=== PATIENT | male | born 1935 | race Caucasian/White ===

== ENCOUNTER 2020-12-20 15:30 | Inpatient (IN) | payer MEDICARE, BC ==
[~2020-12-20] VITALS: Ht 165.1 cm; Wt 45.1 kg
[2020-12-20 16:35] LABS: Basophils # (auto) 0 10 ^3/uL (0-0.2); Basophils % (auto) 0.4 % (0.0-2.0); Eosinophils # (auto) 0 10 ^3/uL (0-0.8); Hematocrit 43.3 % (41.0-53.0); Hemoglobin 14.1 g/dL (13.5-17.5); Lymphocytes # (auto) 0.6 10 ^3/uL (0.4-5.4); Lymphocytes % (auto) 7.6 % (10.0-50.0); Mean Corpuscular Hemoglobin 29.9 pg (28.0-32.0); Mean Corpuscular Hgb Conc. 32.6 g/dL (32.0-36.0); Mean Corpuscular Volume 91.7 fL (80.0-100.0); Monocytes # (auto) 0.7 10 ^3/uL (0-1.3); Monocytes % (auto) 8.8 % (0.0-12.0); Neutrophils # (auto) 6.5 10 ^3/uL (1.6-8.6); Neutrophils % (auto) 83.2 % (37.0-80.0); Nucleated Red Blood Cells % 0.2 %; Red Blood Cells 4.72 10^6/uL (4.5-5.90); Red Cell Distribution Width 15.2 % (11.8-14.3); White Blood Cell 7.8 10^3/uL (4.4-10.8)
[2020-12-20 16:43] LABS: Albumin 2.6 g/dL (3.4-5.0); BUN/Creatinine Ratio 28.9; Calcium 7.8 mg/dL (8.5-10.1); Potassium 3.9 mmol/L (3.5-5.1)
[2020-12-20 16:51] LABS: Bilirubin, Total 0.3 mg/dL (0.2-1.0); Total Protein 6.4 g/dL (6.4-8.2)
[2020-12-20 16:56] LABS: CRP High Sensitivity 13.7 mg/dL (< 0.3)
[2020-12-20 16:59] LABS: INR 1.21 (0.9-1.15); Partial Thromboplastin Time 32.4 sec (23.6-33.0)
[2020-12-20] MEDS ORDERED: DexAMETHasone SOD PHOS 10MG/1ML VIAL INJ IV ONE (17:15)
[2020-12-20] MEDS ORDERED: cefTRIAXone 1GM/50ML D5W 50 ML IV ONE (17:15)
[2020-12-20] MEDS ORDERED: AZITHROMYCIN 500MG/ 250ML 250 ML IV ONE (17:15)
[2020-12-20] MEDS ORDERED: hydrALAZINE HCL 20 MG/ML VL IV PRN (19:00)
[2020-12-20] MEDS ORDERED: ACETAMINOPHEN 500 MG TAB PO PRN (19:00)
[2020-12-20] MEDS ORDERED: MORPHINE SULFATE INJECTION 2 MG/ML SYRG IV PRN ×2 (19:00)
[2020-12-20] MEDS ORDERED: NITROGLYCERIN 0.4 MG SL TAB SL PRN (19:00)
[2020-12-20] MEDS ORDERED: ONDANSETRON HCL 4 MG/2 ML VIAL IV PRN (19:00)
[2020-12-20] MEDS ORDERED: SODIUM CHLORIDE 0.9% 1,000 ML IV SCH (19:30)
[2020-12-20 19:49] VITALS: BP 125/53
[2020-12-20] MEDS: CHOLECALCIFEROL (VITD3) 2,000 UNIT CAP/TAB PO SCH (20:26)
[2020-12-20] MEDS: ASCORBIC ACID 1,000 MG TAB PO SCH (20:26)
[2020-12-20 21:25] VITALS: BP 120/68
[2020-12-20 22:00] VITALS: BP 120/68
[2020-12-20] MEDS ORDERED: PNEUMOCOCCAL VACC POLYS 25 MCG/0.5 ML VIAL IM ONE (22:45)
[2020-12-20] MEDS: ENOXAPARIN SOD 40 MG/0.4 ML SYRINGE SC SCH (22:59)
[2020-12-20] MEDS ORDERED: BET25T GT (23:52)
[2020-12-20] MEDS ORDERED: ALPR0.254 PO (23:52)
[2020-12-20] MEDS ORDERED: SENN-58 PO (23:52)
[2020-12-20] MEDS ORDERED: B-COTAB10 OR (23:52)
[2020-12-20] MEDS ORDERED: AMLO-496 PO (23:52)
[2020-12-20] MEDS ORDERED: FER325T PO (23:52)
[2020-12-20] MEDS ORDERED: SIME1CAP12 PO (23:52)
[2020-12-20] MEDS ORDERED: DOCU100T15 PO (23:59)
[2020-12-20] MEDS ORDERED: CHOL20007 OR (23:59)
[2020-12-20] MEDS ORDERED: ZINC50TA27 PO (23:59)
[2020-12-20] MEDS ORDERED: ACET1CAP14 PO (23:59)
[2020-12-20] MEDS ORDERED: HYDR-4902 PO (23:59)
[2020-12-20] MEDS ORDERED: PRAV20TA3 PO (23:59)
[2020-12-20] MEDS ORDERED: ZOLP5TAB5 PO (23:59)
[2020-12-20] MEDS ORDERED: DIP25C PO (23:59)
[2020-12-20] MEDS ORDERED: MELA3TAB27 PO (23:59)
[2020-12-21] MEDS: SOD CHL 0.45% 1,000 ML IV SCH ×3 (00:21→17:35)
[2020-12-21 05:00] VITALS: BP 115/55
[2020-12-21 06:39] LABS: Basophils # (auto) 0 10 ^3/uL (0-0.2); Basophils % (auto) 0.1 % (0.0-2.0); Eosinophils # (auto) 0 10 ^3/uL (0-0.8); Eosinophils % (auto) 0.2 % (0.0-7.0); Hematocrit 40.9 % (41.0-53.0); Hemoglobin 13.4 g/dL (13.5-17.5); Lymphocytes # (auto) 0.5 10 ^3/uL (0.4-5.4); Lymphocytes % (auto) 9.6 % (10.0-50.0); Mean Corpuscular Hemoglobin 30.1 pg (28.0-32.0); Mean Corpuscular Hgb Conc. 32.8 g/dL (32.0-36.0); Mean Corpuscular Volume 91.8 fL (80.0-100.0); Monocytes # (auto) 0.4 10 ^3/uL (0-1.3); Monocytes % (auto) 8.6 % (0.0-12.0); Neutrophils # (auto) 4.2 10 ^3/uL (1.6-8.6); Neutrophils % (auto) 81.5 % (37.0-80.0); Nucleated Red Blood Cells % 0.1 %; Red Blood Cells 4.46 10^6/uL (4.5-5.90); Red Cell Distribution Width 14.8 % (11.8-14.3); White Blood Cell 5.2 10^3/uL (4.4-10.8)
[2020-12-21 06:54] LABS: Calcium 7.5 mg/dL (8.5-10.1); Potassium 3.7 mmol/L (3.5-5.1)
[2020-12-21 06:57] LABS: Albumin 2.1 g/dL (3.4-5.0); Magnesium 2.4 mg/dL (1.6-2.6)
[2020-12-21 07:00] LABS: Bilirubin, Total 0.3 mg/dL (0.2-1.0); Total Protein 5.6 g/dL (6.4-8.2)
[2020-12-21 08:00] VITALS: BP 109/60
[2020-12-21] MEDS: DexAMETHasone SOD PHOS 10MG/1ML VIAL INJ IV SCH (08:43)
[2020-12-21] MEDS: cefTRIAXone 1GM/50ML D5W 50 ML IV SCH (08:43)
[2020-12-21] MEDS: PANTOPRAZOLE 40 MG TAB PO SCH (08:44)
[2020-12-21] MEDS: ZINC SULFATE 220mg CAP or TAB PO SCH (08:44)
[2020-12-21] MEDS: ASCORBIC ACID 1,000 MG TAB PO SCH (08:44)
[2020-12-21] MEDS: CHOLECALCIFEROL (VITD3) 2,000 UNIT CAP/TAB PO SCH (08:44)
[2020-12-21 09:16] LABS: Urine Bacteria FEW /hpf (None Seen); Urine Blood 3+ /uL (Negative); Urine Mucus FEW (None Seen); Urine Specific Gravity 1.018 (1.001-1.035); Urine WBC 42 /hpf (0 - 3)
[2020-12-21] MEDS: ALBUTEROL SULF HFA 90MCG INH 200DOSE IN PRN ×2 (09:50→20:57)
[2020-12-21] MEDS: BUDESONIDE (INHALATION) 180 MCG IH IN SCH ×2 (09:51→20:57)
[2020-12-21] MEDS ORDERED: REMDESIVIR PER PHARMACY 0 ML IV SCH (12:30)
[2020-12-21 13:08] VITALS: BP 97/50
[2020-12-21 14:34] LABS: Sodium Urine 33 mmol/L (40-220)
[2020-12-21 14:38] LABS: Creatinine, Urine 72 mg/dL (30.0-125.0)
[2020-12-21] MEDS ORDERED: REMDESIVIR 200 MG in NS 210ml LOADING DOSE ADULT IV ONE (15:00)
[2020-12-21 17:18] VITALS: BP 115/56
[2020-12-21] MEDS: AZITHROMYCIN 500MG/ 250ML 250 ML IV SCH (17:59)
[2020-12-21] MEDS: ENOXAPARIN SOD 40 MG/0.4 ML SYRINGE SC SCH (21:34)
[2020-12-21 22:00] VITALS: BP 107/59
[2020-12-22 05:00] VITALS: BP 127/61
[2020-12-22 06:09] LABS: Calcium 7.3 mg/dL (8.5-10.1); Potassium 3.3 mmol/L (3.5-5.1)
[2020-12-22 06:15] LABS: Albumin 2.1 g/dL (3.4-5.0); Bilirubin, Total 0.2 mg/dL (0.2-1.0); Total Protein 5.4 g/dL (6.4-8.2)
[2020-12-22] MEDS ORDERED: POTASSIUM CHL 20 Meq TABLET PO ONE (06:45)
[2020-12-22] MEDS: ALBUTEROL SULF HFA 90MCG INH 200DOSE IN PRN (07:50)
[2020-12-22] MEDS: BUDESONIDE (INHALATION) 180 MCG IH IN SCH ×2 (07:50→21:46)
[2020-12-22] MEDS: ASCORBIC ACID 1,000 MG TAB PO SCH (08:51)
[2020-12-22] MEDS: CHOLECALCIFEROL (VITD3) 2,000 UNIT CAP/TAB PO SCH (08:51)
[2020-12-22] MEDS: PANTOPRAZOLE 40 MG TAB PO SCH (08:51)
[2020-12-22] MEDS: cefTRIAXone 1GM/50ML D5W 50 ML IV SCH (08:51)
[2020-12-22] MEDS: ZINC SULFATE 220mg CAP or TAB PO SCH (08:51)
[2020-12-22] MEDS: DexAMETHasone SOD PHOS 10MG/1ML VIAL INJ IV SCH (08:51)
[2020-12-22 09:00] VITALS: BP 121/65
[2020-12-22] MEDS: SOD CHL 0.45% 1,000 ML IV SCH ×2 (12:45→23:42)
[2020-12-22 13:00] VITALS: BP 119/68
[2020-12-22] MEDS: REMDESIVIR 100mg 100 MG in SODIUM CHL 0.9% 230 ML IV SCH (15:28)
[2020-12-22 16:52] VITALS: BP 139/78
[2020-12-22] MEDS: AZITHROMYCIN 500MG/ 250ML 250 ML IV SCH (17:48)
[2020-12-22] MEDS: ENOXAPARIN SOD 40 MG/0.4 ML SYRINGE SC SCH (21:02)
[2020-12-22 22:09] VITALS: BP 120/66
[2020-12-23 05:10] VITALS: BP 140/76
[2020-12-23] MEDS: ALBUTEROL SULF HFA 90MCG INH 200DOSE IN PRN ×2 (06:53→21:17)
[2020-12-23] MEDS: BUDESONIDE (INHALATION) 180 MCG IH IN SCH ×2 (06:53→21:17)
[2020-12-23 07:15] LABS: Albumin 1.9 g/dL (3.4-5.0); Calcium 7.3 mg/dL (8.5-10.1); Potassium 3.9 mmol/L (3.5-5.1)
[2020-12-23 07:19] LABS: Bilirubin, Total 0.3 mg/dL (0.2-1.0)
[2020-12-23 08:00] VITALS: BP 141/80
[2020-12-23] MEDS: DexAMETHasone SOD PHOS 10MG/1ML VIAL INJ IV SCH (10:32)
[2020-12-23] MEDS: cefTRIAXone 1GM/50ML D5W 50 ML IV SCH (10:32)
[2020-12-23] MEDS: ZINC SULFATE 220mg CAP or TAB PO SCH (10:32)
[2020-12-23] MEDS: ASCORBIC ACID 1,000 MG TAB PO SCH (10:33)
[2020-12-23] MEDS: PANTOPRAZOLE 40 MG TAB PO SCH (10:33)
[2020-12-23] MEDS: CHOLECALCIFEROL (VITD3) 2,000 UNIT CAP/TAB PO SCH (10:33)
[2020-12-23] MEDS: SOD CHL 0.45% 1,000 ML IV SCH (10:50)
[2020-12-23 12:00] VITALS: BP 131/67
[2020-12-23] MEDS: REMDESIVIR 100mg 100 MG in SODIUM CHL 0.9% 230 ML IV SCH (15:26)
[2020-12-23 16:00] VITALS: BP 133/67
[2020-12-23] MEDS: AZITHROMYCIN 500MG/ 250ML 250 ML IV SCH (17:49)
[2020-12-23] MEDS: ENOXAPARIN SOD 40 MG/0.4 ML SYRINGE SC SCH (20:45)
[2020-12-23 22:00] VITALS: BP 125/69
[2020-12-24] MEDS: SOD CHL 0.45% 1,000 ML IV SCH ×2 (02:15→14:45)
[2020-12-24 03:09] VITALS: BP 125/64
[2020-12-24 05:00] VITALS: BP 132/57
[2020-12-24 06:29] LABS: Potassium 3.6 mmol/L (3.5-5.1)
[2020-12-24] MEDS: ALBUTEROL SULF HFA 90MCG INH 200DOSE IN PRN ×2 (06:36→22:26)
[2020-12-24] MEDS: BUDESONIDE (INHALATION) 180 MCG IH IN SCH ×2 (06:36→22:26)
[2020-12-24 06:39] LABS: Albumin 1.7 g/dL (3.4-5.0); Bilirubin, Total 0.2 mg/dL (0.2-1.0); Calcium 7.1 mg/dL (8.5-10.1); Total Protein 4.7 g/dL (6.4-8.2)
[2020-12-24 09:00] VITALS: BP 118/64
[2020-12-24] MEDS: DexAMETHasone SOD PHOS 10MG/1ML VIAL INJ IV SCH (09:09)
[2020-12-24] MEDS: cefTRIAXone 1GM/50ML D5W 50 ML IV SCH (09:09)
[2020-12-24] MEDS: PANTOPRAZOLE 40 MG TAB PO SCH (09:10)
[2020-12-24] MEDS: ZINC SULFATE 220mg CAP or TAB PO SCH (09:10)
[2020-12-24] MEDS: ASCORBIC ACID 1,000 MG TAB PO SCH (09:10)
[2020-12-24] MEDS: CHOLECALCIFEROL (VITD3) 2,000 UNIT CAP/TAB PO SCH (09:11)
[2020-12-24 12:59] VITALS: BP 132/67
[2020-12-24] MEDS: REMDESIVIR 100mg 100 MG in SODIUM CHL 0.9% 230 ML IV SCH (16:26)
[2020-12-24 17:00] VITALS: BP 121/65
[2020-12-24] MEDS: AZITHROMYCIN 500MG/ 250ML 250 ML IV SCH (17:00)
[2020-12-24] MEDS: ENOXAPARIN SOD 40 MG/0.4 ML SYRINGE SC SCH (20:48)
[2020-12-24 22:00] VITALS: BP 129/74
[2020-12-25] MEDS: SOD CHL 0.45% 1,000 ML IV SCH ×2 (03:15→18:30)
[2020-12-25 05:00] VITALS: BP 138/73
[2020-12-25 06:27] LABS: Albumin 1.8 g/dL (3.4-5.0); Calcium 7.3 mg/dL (8.5-10.1); Potassium 3.8 mmol/L (3.5-5.1)
[2020-12-25 06:32] LABS: BUN/Creatinine Ratio 33.8; Bilirubin, Total 0.3 mg/dL (0.2-1.0)
[2020-12-25] MEDS: BUDESONIDE (INHALATION) 180 MCG IH IN SCH ×2 (08:18→23:27)
[2020-12-25 09:00] VITALS: BP 133/73
[2020-12-25] MEDS: cefTRIAXone 1GM/50ML D5W 50 ML IV SCH (12:14)
[2020-12-25] MEDS: CHOLECALCIFEROL (VITD3) 2,000 UNIT CAP/TAB PO SCH (12:15)
[2020-12-25] MEDS: DexAMETHasone SOD PHOS 10MG/1ML VIAL INJ IV SCH (12:15)
[2020-12-25] MEDS: ASCORBIC ACID 1,000 MG TAB PO SCH (12:15)
[2020-12-25] MEDS: PANTOPRAZOLE 40 MG TAB PO SCH (12:15)
[2020-12-25] MEDS: ZINC SULFATE 220mg CAP or TAB PO SCH (12:15)
[2020-12-25 13:00] VITALS: BP 139/69
[2020-12-25] MEDS: REMDESIVIR 100mg 100 MG in SODIUM CHL 0.9% 230 ML IV SCH (15:23)
[2020-12-25 17:00] VITALS: BP 125/69
[2020-12-25] MEDS: AZITHROMYCIN 500MG/ 250ML 250 ML IV SCH (18:00)
[2020-12-25] MEDS: ENOXAPARIN SOD 40 MG/0.4 ML SYRINGE SC SCH (21:23)
[2020-12-25 22:00] VITALS: BP 116/60
[2020-12-25] MEDS: ALBUTEROL SULF HFA 90MCG INH 200DOSE IN PRN (23:27)
[2020-12-26 05:00] VITALS: BP 151/69
[2020-12-26] MEDS: DOCUSATE CALCIUM 240 MG CAP PO PRN ×2 (06:05→16:21)
[2020-12-26 06:28] LABS: BUN/Creatinine Ratio 33.8; Calcium 6.9 mg/dL (8.5-10.1); Magnesium 2.1 mg/dL (1.6-2.6); Phosphorus 3.1 mg/dL (2.5-4.90); Potassium 4.3 mmol/L (3.5-5.1)
[2020-12-26 06:29] LABS: Basophils # (auto) 0 10 ^3/uL (0-0.2); Basophils % (auto) 0.1 % (0.0-2.0); Eosinophils # (auto) 0 10 ^3/uL (0-0.8); Hematocrit 42.4 % (41.0-53.0); Hemoglobin 14.3 g/dL (13.5-17.5); Lymphocytes # (auto) 0.5 10 ^3/uL (0.4-5.4); Lymphocytes % (auto) 4.2 % (10.0-50.0); Mean Corpuscular Hemoglobin 30.1 pg (28.0-32.0); Mean Corpuscular Hgb Conc. 33.6 g/dL (32.0-36.0); Mean Corpuscular Volume 89.5 fL (80.0-100.0); Monocytes # (auto) 0.9 10 ^3/uL (0-1.3); Monocytes % (auto) 7.4 % (0.0-12.0); Neutrophils # (auto) 10.3 10 ^3/uL (1.6-8.6); Neutrophils % (auto) 88.3 % (37.0-80.0); Nucleated Red Blood Cells % 0.1 %; Red Blood Cells 4.74 10^6/uL (4.5-5.90); Red Cell Distribution Width 14.9 % (11.8-14.3); White Blood Cell 11.7 10^3/uL (4.4-10.8)
[2020-12-26] MEDS: BUDESONIDE (INHALATION) 180 MCG IH IN SCH ×2 (08:04→22:30)
[2020-12-26] MEDS: ALBUTEROL SULF HFA 90MCG INH 200DOSE IN PRN ×2 (08:05→23:11)
[2020-12-26] MEDS: ASCORBIC ACID 1,000 MG TAB PO SCH (08:36)
[2020-12-26] MEDS: PANTOPRAZOLE 40 MG TAB PO SCH (08:36)
[2020-12-26] MEDS: DexAMETHasone SOD PHOS 10MG/1ML VIAL INJ IV SCH (08:36)
[2020-12-26] MEDS: cefTRIAXone 1GM/50ML D5W 50 ML IV SCH (08:36)
[2020-12-26] MEDS: CHOLECALCIFEROL (VITD3) 2,000 UNIT CAP/TAB PO SCH (08:36)
[2020-12-26] MEDS: ENOXAPARIN SOD 40 MG/0.4 ML SYRINGE SC SCH ×2 (08:37→21:51)
[2020-12-26] MEDS: ZINC SULFATE 220mg CAP or TAB PO SCH (08:37)
[2020-12-26 09:00] VITALS: BP 135/73
[2020-12-26 13:00] VITALS: BP 123/87
[2020-12-26 17:00] VITALS: BP 132/84
[2020-12-26] MEDS: SOD CHL 0.45% 1,000 ML IV SCH (19:00)
[2020-12-26 22:00] VITALS: BP 118/64
[2020-12-27] VITALS (7 sets, daily range): BP systolic 116–152; BP diastolic 60–77
[2020-12-27 05:40] LABS: Basophils # (auto) 0 10 ^3/uL (0-0.2); Basophils % (auto) 0.1 % (0.0-2.0); Eosinophils # (auto) 0 10 ^3/uL (0-0.8); Hematocrit 42.2 % (41.0-53.0); Hemoglobin 14.1 g/dL (13.5-17.5); Lymphocytes # (auto) 0.4 10 ^3/uL (0.4-5.4); Mean Corpuscular Hemoglobin 29.6 pg (28.0-32.0); Mean Corpuscular Hgb Conc. 33.3 g/dL (32.0-36.0); Monocytes # (auto) 0.9 10 ^3/uL (0-1.3); Monocytes % (auto) 6.1 % (0.0-12.0); Neutrophils # (auto) 13.3 10 ^3/uL (1.6-8.6); Neutrophils % (auto) 90.8 % (37.0-80.0); Red Blood Cells 4.74 10^6/uL (4.5-5.90); Red Cell Distribution Width 14.7 % (11.8-14.3); White Blood Cell 14.6 10^3/uL (4.4-10.8)
[2020-12-27 06:32] LABS: BUN/Creatinine Ratio 30.2; Calcium 7.4 mg/dL (8.5-10.1); Magnesium 1.9 mg/dL (1.6-2.6); Phosphorus 2.9 mg/dL (2.5-4.90)
[2020-12-27 07:09] LABS: CRP High Sensitivity 6.25 mg/dL (< 0.3)
[2020-12-27] MEDS: BUDESONIDE (INHALATION) 180 MCG IH IN SCH ×2 (07:20→22:00)
[2020-12-27] MEDS: ALBUTEROL SULF HFA 90MCG INH 200DOSE IN PRN (07:20)
[2020-12-27] MEDS: ZINC SULFATE 220mg CAP or TAB PO SCH (09:00)
[2020-12-27] MEDS: PANTOPRAZOLE 40 MG TAB PO SCH (09:00)
[2020-12-27] MEDS: DexAMETHasone SOD PHOS 10MG/1ML VIAL INJ IV SCH (09:00)
[2020-12-27] MEDS: cefTRIAXone 1GM/50ML D5W 50 ML IV SCH (09:00)
[2020-12-27] MEDS: CHOLECALCIFEROL (VITD3) 2,000 UNIT CAP/TAB PO SCH (09:01)
[2020-12-27] MEDS: ENOXAPARIN SOD 40 MG/0.4 ML SYRINGE SC SCH ×2 (09:01→21:27)
[2020-12-27] MEDS: ASCORBIC ACID 1,000 MG TAB PO SCH (09:01)
[2020-12-27] MEDS ORDERED: FLEET ENEMA(ADULT) 135 ML PR ONE (18:30)
[2020-12-27] MEDS: SOD CHL 0.45% 1,000 ML IV SCH (18:54)
[2020-12-28 05:00] VITALS: BP 139/74
[2020-12-28] MEDS: ALBUTEROL SULF HFA 90MCG INH 200DOSE IN PRN ×2 (06:48→22:28)
[2020-12-28] MEDS: BUDESONIDE (INHALATION) 180 MCG IH IN SCH ×2 (06:49→22:28)
[2020-12-28 09:00] VITALS: BP 132/73
[2020-12-28] MEDS: PANTOPRAZOLE 40 MG TAB PO SCH (10:10)
[2020-12-28] MEDS: ZINC SULFATE 220mg CAP or TAB PO SCH (10:10)
[2020-12-28] MEDS: cefTRIAXone 1GM/50ML D5W 50 ML IV SCH (10:10)
[2020-12-28] MEDS: DexAMETHasone SOD PHOS 10MG/1ML VIAL INJ IV SCH (10:10)
[2020-12-28] MEDS: CHOLECALCIFEROL (VITD3) 2,000 UNIT CAP/TAB PO SCH (10:11)
[2020-12-28] MEDS: ENOXAPARIN SOD 40 MG/0.4 ML SYRINGE SC SCH ×2 (10:11→21:07)
[2020-12-28] MEDS: ASCORBIC ACID 1,000 MG TAB PO SCH (10:11)
[2020-12-28 13:00] VITALS: BP 116/71
[2020-12-28 17:00] VITALS: BP 127/65
[2020-12-28] MEDS: SOD CHL 0.45% 1,000 ML IV SCH (17:26)
[2020-12-28 22:00] VITALS: BP 136/77
[2020-12-29 05:00] VITALS: BP 123/74
[2020-12-29] MEDS: BUDESONIDE (INHALATION) 180 MCG IH IN SCH ×2 (07:13→22:43)
[2020-12-29] MEDS: ALBUTEROL SULF HFA 90MCG INH 200DOSE IN PRN ×2 (07:13→22:43)
[2020-12-29] MEDS: cefTRIAXone 1GM/50ML D5W 50 ML IV SCH (09:19)
[2020-12-29] MEDS: DexAMETHasone SOD PHOS 10MG/1ML VIAL INJ IV SCH (09:20)
[2020-12-29] MEDS: ZINC SULFATE 220mg CAP or TAB PO SCH (09:20)
[2020-12-29] MEDS: ASCORBIC ACID 1,000 MG TAB PO SCH (09:20)
[2020-12-29] MEDS: PANTOPRAZOLE 40 MG TAB PO SCH (09:20)
[2020-12-29] MEDS: ENOXAPARIN SOD 40 MG/0.4 ML SYRINGE SC SCH ×2 (09:21→21:15)
[2020-12-29] MEDS: CHOLECALCIFEROL (VITD3) 2,000 UNIT CAP/TAB PO SCH (09:21)
[2020-12-29 09:49] VITALS: BP 110/54
[2020-12-29 13:00] VITALS: BP 120/58
[2020-12-29] MEDS: SOD CHL 0.45% 1,000 ML IV SCH (15:20)
[2020-12-29 17:00] VITALS: BP 114/60
[2020-12-29 22:00] VITALS: BP 114/62
[2020-12-30] VITALS (7 sets, daily range): BP systolic 114–142; BP diastolic 59–75
[2020-12-30] MEDS: BUDESONIDE (INHALATION) 180 MCG IH IN SCH ×2 (07:23→22:47)
[2020-12-30] MEDS: ALBUTEROL SULF HFA 90MCG INH 200DOSE IN PRN ×2 (07:23→22:47)
[2020-12-30] MEDS: ZINC SULFATE 220mg CAP or TAB PO SCH (09:30)
[2020-12-30] MEDS: CHOLECALCIFEROL (VITD3) 2,000 UNIT CAP/TAB PO SCH (09:30)
[2020-12-30] MEDS: ENOXAPARIN SOD 40 MG/0.4 ML SYRINGE SC SCH ×2 (09:30→21:55)
[2020-12-30] MEDS: cefTRIAXone 1GM/50ML D5W 50 ML IV SCH (09:30)
[2020-12-30] MEDS: ASCORBIC ACID 1,000 MG TAB PO SCH (09:30)
[2020-12-30] MEDS: DexAMETHasone SOD PHOS 10MG/1ML VIAL INJ IV SCH (09:31)
[2020-12-30] MEDS: PANTOPRAZOLE 40 MG TAB PO SCH (09:31)
[2020-12-30] MEDS: DOCUSATE CALCIUM 240 MG CAP PO PRN (18:03)
[2020-12-30] MEDS: SOD CHL 0.45% 1,000 ML IV SCH (18:08)
[2020-12-31 05:15] VITALS: BP 120/63
[2020-12-31] MEDS: ALBUTEROL SULF HFA 90MCG INH 200DOSE IN PRN ×2 (07:13→20:02)
[2020-12-31] MEDS: BUDESONIDE (INHALATION) 180 MCG IH IN SCH ×2 (07:14→20:02)
[2020-12-31 09:00] VITALS: BP 139/68
[2020-12-31] MEDS: ENOXAPARIN SOD 40 MG/0.4 ML SYRINGE SC SCH ×2 (09:09→22:07)
[2020-12-31] MEDS: cefTRIAXone 1GM/50ML D5W 50 ML IV SCH (09:09)
[2020-12-31] MEDS: ASCORBIC ACID 1,000 MG TAB PO SCH (09:10)
[2020-12-31] MEDS: CHOLECALCIFEROL (VITD3) 2,000 UNIT CAP/TAB PO SCH (09:10)
[2020-12-31] MEDS: DexAMETHasone SOD PHOS 10MG/1ML VIAL INJ IV SCH (09:10)
[2020-12-31] MEDS: ZINC SULFATE 220mg CAP or TAB PO SCH (09:11)
[2020-12-31] MEDS: PANTOPRAZOLE 40 MG TAB PO SCH (09:11)
[2020-12-31 13:00] VITALS: BP 129/68
[2020-12-31 17:00] VITALS: BP 114/60
[2020-12-31] MEDS: SOD CHL 0.45% 1,000 ML IV SCH (18:41)
[2020-12-31 20:00] VITALS: BP 114/59
[2020-12-31 22:00] VITALS: BP 114/59
[2021-01-01] VITALS (7 sets, daily range): BP systolic 128–138; BP diastolic 68–75
[2021-01-01] MEDS: BUDESONIDE (INHALATION) 180 MCG IH IN SCH ×2 (07:50→22:06)
[2021-01-01] MEDS: ALBUTEROL SULF HFA 90MCG INH 200DOSE IN PRN ×2 (07:50→22:06)
[2021-01-01] MEDS: cefTRIAXone 1GM/50ML D5W 50 ML IV SCH (09:10)
[2021-01-01] MEDS: DexAMETHasone SOD PHOS 10MG/1ML VIAL INJ IV SCH (09:11)
[2021-01-01] MEDS: ENOXAPARIN SOD 40 MG/0.4 ML SYRINGE SC SCH ×2 (09:11→21:54)
[2021-01-01] MEDS: ZINC SULFATE 220mg CAP or TAB PO SCH (09:11)
[2021-01-01] MEDS: CHOLECALCIFEROL (VITD3) 2,000 UNIT CAP/TAB PO SCH (09:12)
[2021-01-01] MEDS: ASCORBIC ACID 1,000 MG TAB PO SCH (09:12)
[2021-01-01] MEDS: PANTOPRAZOLE 40 MG TAB PO SCH (09:12)
[2021-01-01] MEDS: SOD CHL 0.45% 1,000 ML IV SCH (17:10)
[2021-01-01] MEDS: Ensure Enlive Strawberry 8oz Bottle PO SCH (18:48)
[2021-01-01] MEDS: SALINE 0.65 % NASAL SPRAY 45ML BOTTLE EACHNOSTRI SCH (21:55)
[2021-01-02 05:00] VITALS: BP 131/70
[2021-01-02 05:59] LABS: Basophils # (auto) 0 10 ^3/uL (0-0.2); Basophils % (auto) 0.2 % (0.0-2.0); Eosinophils # (auto) 0.1 10 ^3/uL (0-0.8); Eosinophils % (auto) 0.5 % (0.0-7.0); Hematocrit 38.9 % (41.0-53.0); Lymphocytes # (auto) 0.4 10 ^3/uL (0.4-5.4); Lymphocytes % (auto) 3.7 % (10.0-50.0); Mean Corpuscular Hemoglobin 29.9 pg (28.0-32.0); Mean Corpuscular Hgb Conc. 33.4 g/dL (32.0-36.0); Mean Corpuscular Volume 89.4 fL (80.0-100.0); Monocytes # (auto) 0.8 10 ^3/uL (0-1.3); Monocytes % (auto) 6.7 % (0.0-12.0); Neutrophils % (auto) 88.9 % (37.0-80.0); Red Blood Cells 4.35 10^6/uL (4.5-5.90); Red Cell Distribution Width 14.7 % (11.8-14.3); White Blood Cell 11.3 10^3/uL (4.4-10.8)
[2021-01-02 06:21] LABS: BUN/Creatinine Ratio 31.7; Calcium 7.7 mg/dL (8.5-10.1); Magnesium 1.7 mg/dL (1.6-2.6); Potassium 4.2 mmol/L (3.5-5.1)
[2021-01-02 06:30] LABS: CRP High Sensitivity 4.07 mg/dL (< 0.3)
[2021-01-02] MEDS: BUDESONIDE (INHALATION) 180 MCG IH IN SCH ×2 (06:43→20:26)
[2021-01-02] MEDS: ALBUTEROL SULF HFA 90MCG INH 200DOSE IN PRN ×2 (06:44→20:26)
[2021-01-02] MEDS: Ensure Enlive Strawberry 8oz Bottle PO SCH ×2 (08:00→17:28)
[2021-01-02 09:00] VITALS: BP 121/53
[2021-01-02] MEDS: Pro-Stat SF 30ml Vanilla PO SCH (10:00)
[2021-01-02] MEDS: ZINC SULFATE 220mg CAP or TAB PO SCH (10:49)
[2021-01-02] MEDS: cefTRIAXone 1GM/50ML D5W 50 ML IV SCH (10:49)
[2021-01-02] MEDS: DexAMETHasone SOD PHOS 10MG/1ML VIAL INJ IV SCH (10:49)
[2021-01-02] MEDS: SALINE 0.65 % NASAL SPRAY 45ML BOTTLE EACHNOSTRI SCH ×2 (10:49→21:18)
[2021-01-02] MEDS: PANTOPRAZOLE 40 MG TAB PO SCH (10:50)
[2021-01-02] MEDS: CHOLECALCIFEROL (VITD3) 2,000 UNIT CAP/TAB PO SCH (10:50)
[2021-01-02] MEDS: ASCORBIC ACID 1,000 MG TAB PO SCH (10:50)
[2021-01-02] MEDS: ENOXAPARIN SOD 40 MG/0.4 ML SYRINGE SC SCH ×2 (10:50→21:18)
[2021-01-02 13:00] VITALS: BP 126/55
[2021-01-02 17:00] VITALS: BP 131/69
[2021-01-02] MEDS: SOD CHL 0.45% 1,000 ML IV SCH (17:28)
[2021-01-02 21:30] VITALS: BP 114/61
[2021-01-03 05:00] VITALS: BP 107/68
[2021-01-03] MEDS: BUDESONIDE (INHALATION) 180 MCG IH IN SCH ×2 (07:04→22:26)
[2021-01-03] MEDS: ALBUTEROL SULF HFA 90MCG INH 200DOSE IN PRN (07:04)
[2021-01-03 08:00] VITALS: BP 111/56
[2021-01-03] MEDS: Ensure Enlive Strawberry 8oz Bottle PO SCH ×2 (08:00→18:40)
[2021-01-03] MEDS: Pro-Stat SF 30ml Vanilla PO SCH (10:00)
[2021-01-03] MEDS: SALINE 0.65 % NASAL SPRAY 45ML BOTTLE EACHNOSTRI SCH ×2 (10:30→21:48)
[2021-01-03] MEDS: PANTOPRAZOLE 40 MG TAB PO SCH (11:01)
[2021-01-03] MEDS: cefTRIAXone 1GM/50ML D5W 50 ML IV SCH (11:01)
[2021-01-03] MEDS: DexAMETHasone SOD PHOS 10MG/1ML VIAL INJ IV SCH (11:01)
[2021-01-03] MEDS: ZINC SULFATE 220mg CAP or TAB PO SCH (11:01)
[2021-01-03] MEDS: CHOLECALCIFEROL (VITD3) 2,000 UNIT CAP/TAB PO SCH (11:01)
[2021-01-03] MEDS: ASCORBIC ACID 1,000 MG TAB PO SCH (11:01)
[2021-01-03] MEDS: ENOXAPARIN SOD 40 MG/0.4 ML SYRINGE SC SCH ×2 (11:02→21:49)
[2021-01-03 12:00] VITALS: BP 121/59
[2021-01-03 16:00] VITALS: BP 101/50
[2021-01-03] MEDS: SOD CHL 0.45% 1,000 ML IV SCH (18:39)
[2021-01-03 21:00] VITALS: BP 113/58
[2021-01-04 05:00] VITALS: BP 118/61
[2021-01-04] MEDS: ALBUTEROL SULF HFA 90MCG INH 200DOSE IN PRN ×2 (07:39→23:09)
[2021-01-04] MEDS: BUDESONIDE (INHALATION) 180 MCG IH IN SCH ×2 (07:39→21:30)
[2021-01-04] MEDS: Ensure Enlive Strawberry 8oz Bottle PO SCH ×2 (08:00→18:00)
[2021-01-04] MEDS: PANTOPRAZOLE 40 MG TAB PO SCH (08:03)
[2021-01-04] MEDS: ASCORBIC ACID 1,000 MG TAB PO SCH (08:03)
[2021-01-04] MEDS: ZINC SULFATE 220mg CAP or TAB PO SCH (08:04)
[2021-01-04] MEDS: CHOLECALCIFEROL (VITD3) 2,000 UNIT CAP/TAB PO SCH (08:04)
[2021-01-04] MEDS: ENOXAPARIN SOD 40 MG/0.4 ML SYRINGE SC SCH ×2 (08:04→21:28)
[2021-01-04] MEDS: DexAMETHasone SOD PHOS 10MG/1ML VIAL INJ IV SCH (08:05)
[2021-01-04] MEDS: cefTRIAXone 1GM/50ML D5W 50 ML IV SCH (08:05)
[2021-01-04 09:00] VITALS: BP 105/49
[2021-01-04] MEDS: SALINE 0.65 % NASAL SPRAY 45ML BOTTLE EACHNOSTRI SCH ×2 (11:08→21:27)
[2021-01-04] MEDS: Pro-Stat SF 30ml Vanilla PO SCH (11:08)
[2021-01-04 13:00] VITALS: BP 105/58
[2021-01-04 17:00] VITALS: BP 109/56
[2021-01-04] MEDS: SOD CHL 0.45% 1,000 ML IV SCH (18:11)
[2021-01-04 20:49] VITALS: BP 109/56
[2021-01-04 22:00] VITALS: BP 120/60
[2021-01-05 05:00] VITALS: BP 122/60
[2021-01-05] MEDS: ALBUTEROL SULF HFA 90MCG INH 200DOSE IN PRN ×2 (07:23→20:44)
[2021-01-05] MEDS: BUDESONIDE (INHALATION) 180 MCG IH IN SCH ×2 (07:24→20:44)
[2021-01-05] MEDS: cefTRIAXone 1GM/50ML D5W 50 ML IV SCH (07:59)
[2021-01-05] MEDS: DexAMETHasone SOD PHOS 10MG/1ML VIAL INJ IV SCH (07:59)
[2021-01-05] MEDS: CHOLECALCIFEROL (VITD3) 2,000 UNIT CAP/TAB PO SCH (08:00)
[2021-01-05] MEDS: SALINE 0.65 % NASAL SPRAY 45ML BOTTLE EACHNOSTRI SCH ×2 (08:00→21:07)
[2021-01-05] MEDS: Ensure Enlive Strawberry 8oz Bottle PO SCH ×2 (08:00→18:00)
[2021-01-05] MEDS: ASCORBIC ACID 1,000 MG TAB PO SCH (08:00)
[2021-01-05] MEDS: ENOXAPARIN SOD 40 MG/0.4 ML SYRINGE SC SCH ×2 (08:00→21:07)
[2021-01-05] MEDS: ZINC SULFATE 220mg CAP or TAB PO SCH (08:00)
[2021-01-05] MEDS: PANTOPRAZOLE 40 MG TAB PO SCH (08:00)
[2021-01-05] MEDS: Pro-Stat SF 30ml Vanilla PO SCH (08:07)
[2021-01-05 09:00] VITALS: BP 129/60
[2021-01-05 13:00] VITALS: BP 100/57
[2021-01-05 17:00] VITALS: BP 116/59
[2021-01-05 21:57] VITALS: BP 109/60
[2021-01-06 04:47] VITALS: BP 122/68
[2021-01-06 06:57] LABS: Chloride 108 mmol/L (98-107); Potassium 3.8 mmol/L (3.5-5.1); Sodium 139 mmol/L (136-145)
[2021-01-06 07:05] LABS: Alanine Aminotransferase 45 U/L (16-61); Albumin 1.6 g/dL (3.4-5.0); Alkaline Phosphatase 45 U/L (45-117); Aspartate Aminotransferase 18 U/L (15-37); BUN/Creatinine Ratio 28.6; Bilirubin, Total 0.3 mg/dL (0.2-1.0); Blood Urea Nitrogen 40 mg/dL (7-18); Calcium 7.8 mg/dL (8.5-10.1); Carbon Dioxide 23 mmol/L (21-32); GFR African American 62 mL/min; GFR Non-African American 51 mL/min; Glucose 78 mg/dL (74-106)
[2021-01-06] MEDS: ALBUTEROL SULF HFA 90MCG INH 200DOSE IN PRN ×2 (07:18→19:53)
[2021-01-06] MEDS: BUDESONIDE (INHALATION) 180 MCG IH IN SCH ×2 (07:18→19:53)
[2021-01-06 07:50] LABS: CRP High Sensitivity > 0.950 mg/dL (< 0.3)
[2021-01-06] MEDS: Ensure Enlive Strawberry 8oz Bottle PO SCH ×2 (08:00→18:18)
[2021-01-06 09:00] VITALS: BP 97/58
[2021-01-06 09:19] LABS: Basophils # (auto) 0 10 ^3/uL (0-0.2); Basophils % (auto) 0.4 % (0.0-2.0); Eosinophils # (auto) 0.2 10 ^3/uL (0-0.8); Eosinophils % (auto) 1.5 % (0.0-7.0); Hematocrit 41.3 % (41.0-53.0); Hemoglobin 13.6 g/dL (13.5-17.5); Lymphocytes # (auto) 0.4 10 ^3/uL (0.4-5.4); Lymphocytes % (auto) 4.1 % (10.0-50.0); Mean Corpuscular Hemoglobin 29.7 pg (28.0-32.0); Mean Corpuscular Hgb Conc. 32.9 g/dL (32.0-36.0); Mean Corpuscular Volume 90.2 fL (80.0-100.0); Monocytes # (auto) 0.5 10 ^3/uL (0-1.3); Monocytes % (auto) 4.4 % (0.0-12.0); Neutrophils # (auto) 9.7 10 ^3/uL (1.6-8.6); Neutrophils % (auto) 89.6 % (37.0-80.0); Red Blood Cells 4.57 10^6/uL (4.5-5.90); Red Cell Distribution Width 14.6 % (11.8-14.3); White Blood Cell 10.9 10^3/uL (4.4-10.8)
[2021-01-06] MEDS: PANTOPRAZOLE 40 MG TAB PO SCH (10:49)
[2021-01-06] MEDS: CHOLECALCIFEROL (VITD3) 2,000 UNIT CAP/TAB PO SCH (10:49)
[2021-01-06] MEDS: ASCORBIC ACID 1,000 MG TAB PO SCH (10:49)
[2021-01-06] MEDS: DexAMETHasone SOD PHOS 10MG/1ML VIAL INJ IV SCH (10:49)
[2021-01-06] MEDS: ZINC SULFATE 220mg CAP or TAB PO SCH (10:49)
[2021-01-06] MEDS: ENOXAPARIN SOD 40 MG/0.4 ML SYRINGE SC SCH ×2 (10:50→20:53)
[2021-01-06] MEDS: Pro-Stat SF 30ml Vanilla PO SCH (10:50)
[2021-01-06] MEDS: SALINE 0.65 % NASAL SPRAY 45ML BOTTLE EACHNOSTRI SCH ×2 (10:50→20:52)
[2021-01-06 13:00] VITALS: BP 104/55
[2021-01-06 14:21] LABS: Anion Gap 8 (5-15)
[2021-01-06 17:00] VITALS: BP 120/63
[2021-01-06 22:00] VITALS: BP 105/56
[2021-01-07 05:00] VITALS: BP 126/57
[2021-01-07] MEDS: Ensure Enlive Strawberry 8oz Bottle PO SCH ×2 (08:30→18:00)
[2021-01-07 09:00] VITALS: BP 116/58
[2021-01-07] MEDS: ALBUTEROL SULF HFA 90MCG INH 200DOSE IN PRN ×2 (09:24→22:41)
[2021-01-07] MEDS: BUDESONIDE (INHALATION) 180 MCG IH IN SCH ×2 (09:25→22:41)
[2021-01-07] MEDS: ZINC SULFATE 220mg CAP or TAB PO SCH (10:02)
[2021-01-07] MEDS: PANTOPRAZOLE 40 MG TAB PO SCH (10:02)
[2021-01-07] MEDS: ENOXAPARIN SOD 40 MG/0.4 ML SYRINGE SC SCH ×2 (10:02→20:58)
[2021-01-07] MEDS: DexAMETHasone SOD PHOS 10MG/1ML VIAL INJ IV SCH (10:02)
[2021-01-07] MEDS: Pro-Stat SF 30ml Vanilla PO SCH (10:03)
[2021-01-07] MEDS: CHOLECALCIFEROL (VITD3) 2,000 UNIT CAP/TAB PO SCH (10:03)
[2021-01-07] MEDS: SALINE 0.65 % NASAL SPRAY 45ML BOTTLE EACHNOSTRI SCH ×2 (10:03→20:57)
[2021-01-07] MEDS: ASCORBIC ACID 1,000 MG TAB PO SCH (10:03)
[2021-01-07 13:31] VITALS: BP 113/65
[2021-01-07] MEDS: LACTULOSE 20Gm/30ML SOLN PO PRN ×2 (13:43→20:58)
[2021-01-07 17:22] VITALS: BP 100/59
[2021-01-07 22:25] VITALS: BP 108/58
[2021-01-08 05:25] VITALS: BP 113/61
[2021-01-08 06:55] LABS: Albumin 1.6 g/dL (3.4-5.0); Calcium 8.3 mg/dL (8.5-10.1); Potassium 3.7 mmol/L (3.5-5.1)
[2021-01-08 06:59] LABS: BUN/Creatinine Ratio 33.8; Bilirubin, Total 0.2 mg/dL (0.2-1.0); Total Protein 4.7 g/dL (6.4-8.2)
[2021-01-08] MEDS: ALBUTEROL SULF HFA 90MCG INH 200DOSE IN PRN ×2 (08:20→21:23)
[2021-01-08] MEDS: BUDESONIDE (INHALATION) 180 MCG IH IN SCH ×2 (08:20→21:22)
[2021-01-08] MEDS: ZINC SULFATE 220mg CAP or TAB PO SCH (08:55)
[2021-01-08] MEDS: DexAMETHasone SOD PHOS 10MG/1ML VIAL INJ IV SCH (08:55)
[2021-01-08] MEDS: SALINE 0.65 % NASAL SPRAY 45ML BOTTLE EACHNOSTRI SCH ×2 (08:55→21:08)
[2021-01-08] MEDS: Ensure Enlive Strawberry 8oz Bottle PO SCH ×2 (08:55→18:07)
[2021-01-08] MEDS: CHOLECALCIFEROL (VITD3) 2,000 UNIT CAP/TAB PO SCH (08:56)
[2021-01-08] MEDS: PANTOPRAZOLE 40 MG TAB PO SCH (08:56)
[2021-01-08] MEDS: Pro-Stat SF 30ml Vanilla PO SCH (08:56)
[2021-01-08] MEDS: ASCORBIC ACID 1,000 MG TAB PO SCH (08:56)
[2021-01-08] MEDS: ENOXAPARIN SOD 40 MG/0.4 ML SYRINGE SC SCH ×2 (08:57→21:08)
[2021-01-08 09:00] VITALS: BP 119/63
[2021-01-08 13:00] VITALS: BP 113/53
[2021-01-08 17:00] VITALS: BP 140/72
[2021-01-08] MEDS: LACTULOSE 20Gm/30ML SOLN PO PRN (21:08)
[2021-01-08 22:00] VITALS: BP 100/52
[2021-01-09 05:00] VITALS: BP 127/65
[2021-01-09] MEDS: ALBUTEROL SULF HFA 90MCG INH 200DOSE IN PRN (07:30)
[2021-01-09] MEDS: BUDESONIDE (INHALATION) 180 MCG IH IN SCH ×2 (07:30→22:00)
[2021-01-09] MEDS: Pro-Stat SF 30ml Vanilla PO SCH (08:32)
[2021-01-09] MEDS: Ensure Enlive Strawberry 8oz Bottle PO SCH ×2 (08:32→18:15)
[2021-01-09] MEDS: ASCORBIC ACID 1,000 MG TAB PO SCH (08:35)
[2021-01-09] MEDS: PANTOPRAZOLE 40 MG TAB PO SCH (08:35)
[2021-01-09] MEDS: ENOXAPARIN SOD 40 MG/0.4 ML SYRINGE SC SCH ×2 (08:35→21:32)
[2021-01-09] MEDS: CHOLECALCIFEROL (VITD3) 2,000 UNIT CAP/TAB PO SCH (08:35)
[2021-01-09] MEDS: DexAMETHasone SOD PHOS 10MG/1ML VIAL INJ IV SCH (08:36)
[2021-01-09] MEDS: ZINC SULFATE 220mg CAP or TAB PO SCH (08:36)
[2021-01-09] MEDS: SALINE 0.65 % NASAL SPRAY 45ML BOTTLE EACHNOSTRI SCH ×2 (08:36→21:31)
[2021-01-09 09:00] VITALS: BP 119/68
[2021-01-09 13:00] VITALS: BP 111/56
[2021-01-09 17:00] VITALS: BP 120/65
[2021-01-09 22:00] VITALS: BP 117/61
[2021-01-10] VITALS (7 sets, daily range): BP systolic 100–124; BP diastolic 56–62
[2021-01-10] MEDS: Ensure Enlive Strawberry 8oz Bottle PO SCH ×2 (08:00→18:44)
[2021-01-10] MEDS: ZINC SULFATE 220mg CAP or TAB PO SCH (09:13)
[2021-01-10] MEDS: ASCORBIC ACID 1,000 MG TAB PO SCH (09:13)
[2021-01-10] MEDS: PANTOPRAZOLE 40 MG TAB PO SCH (09:14)
[2021-01-10] MEDS: CHOLECALCIFEROL (VITD3) 2,000 UNIT CAP/TAB PO SCH (09:14)
[2021-01-10] MEDS: DexAMETHasone SOD PHOS 10MG/1ML VIAL INJ IV SCH (09:15)
[2021-01-10] MEDS: ENOXAPARIN SOD 40 MG/0.4 ML SYRINGE SC SCH ×2 (09:15→23:00)
[2021-01-10] MEDS: SALINE 0.65 % NASAL SPRAY 45ML BOTTLE EACHNOSTRI SCH ×2 (09:16→23:00)
[2021-01-10] MEDS: Pro-Stat SF 30ml Vanilla PO SCH (09:50)
[2021-01-10] MEDS: BUDESONIDE (INHALATION) 180 MCG IH IN SCH ×2 (11:02→21:19)
[2021-01-10] MEDS: ALBUTEROL SULF HFA 90MCG INH 200DOSE IN PRN ×2 (11:02→21:19)
[2021-01-11] VITALS (7 sets, daily range): BP systolic 97–114; BP diastolic 50–63
[2021-01-11] MEDS: Ensure Enlive Strawberry 8oz Bottle PO SCH ×2 (08:13→17:53)
[2021-01-11] MEDS: BUDESONIDE (INHALATION) 180 MCG IH IN SCH ×2 (09:13→22:37)
[2021-01-11] MEDS: ALBUTEROL SULF HFA 90MCG INH 200DOSE IN PRN ×2 (09:13→22:37)
[2021-01-11] MEDS: SALINE 0.65 % NASAL SPRAY 45ML BOTTLE EACHNOSTRI SCH ×2 (10:37→22:00)
[2021-01-11] MEDS: ZINC SULFATE 220mg CAP or TAB PO SCH (10:38)
[2021-01-11] MEDS: CHOLECALCIFEROL (VITD3) 2,000 UNIT CAP/TAB PO SCH (10:38)
[2021-01-11] MEDS: Pro-Stat SF 30ml Vanilla PO SCH (10:38)
[2021-01-11] MEDS: ASCORBIC ACID 1,000 MG TAB PO SCH (10:38)
[2021-01-11] MEDS: PANTOPRAZOLE 40 MG TAB PO SCH (10:38)
[2021-01-11] MEDS: ENOXAPARIN SOD 40 MG/0.4 ML SYRINGE SC SCH ×2 (10:39→22:15)
[2021-01-12 05:00] VITALS: BP 111/59
[2021-01-12] MEDS: BUDESONIDE (INHALATION) 180 MCG IH IN SCH ×2 (05:24→22:15)
[2021-01-12] MEDS: ALBUTEROL SULF HFA 90MCG INH 200DOSE IN PRN ×2 (05:25→22:15)
[2021-01-12] MEDS: Ensure Enlive Strawberry 8oz Bottle PO SCH ×2 (08:00→18:00)
[2021-01-12 09:00] VITALS: BP 112/55
[2021-01-12] MEDS: Pro-Stat SF 30ml Vanilla PO SCH (09:29)
[2021-01-12] MEDS: ZINC SULFATE 220mg CAP or TAB PO SCH (09:29)
[2021-01-12] MEDS: CHOLECALCIFEROL (VITD3) 2,000 UNIT CAP/TAB PO SCH (09:30)
[2021-01-12] MEDS: ASCORBIC ACID 1,000 MG TAB PO SCH (09:30)
[2021-01-12] MEDS: ENOXAPARIN SOD 40 MG/0.4 ML SYRINGE SC SCH (09:30)
[2021-01-12] MEDS: PANTOPRAZOLE 40 MG TAB PO SCH (09:30)
[2021-01-12] MEDS: SALINE 0.65 % NASAL SPRAY 45ML BOTTLE EACHNOSTRI SCH ×2 (10:00→22:00)
[2021-01-12 13:00] VITALS: BP 113/58
[2021-01-12 17:18] VITALS: BP 100/51
[2021-01-12 20:00] VITALS: BP 114/82
[2021-01-12 22:10] VITALS: BP 114/82
[2021-01-13 05:25] VITALS: BP 119/72
[2021-01-13 07:06] LABS: Basophils # (auto) 0 10 ^3/uL (0-0.2); Basophils % (auto) 0.4 % (0.0-2.0); Eosinophils # (auto) 0.5 10 ^3/uL (0-0.8); Hematocrit 39.7 % (41.0-53.0); Hemoglobin 13.3 g/dL (13.5-17.5); Lymphocytes # (auto) 0.6 10 ^3/uL (0.4-5.4); Lymphocytes % (auto) 7.8 % (10.0-50.0); Mean Corpuscular Hemoglobin 30.8 pg (28.0-32.0); Mean Corpuscular Hgb Conc. 33.5 g/dL (32.0-36.0); Mean Corpuscular Volume 92.1 fL (80.0-100.0); Monocytes # (auto) 0.6 10 ^3/uL (0-1.3); Monocytes % (auto) 8.1 % (0.0-12.0); Neutrophils # (auto) 5.8 10 ^3/uL (1.6-8.6); Neutrophils % (auto) 77.7 % (37.0-80.0); Red Blood Cells 4.31 10^6/uL (4.5-5.90); Red Cell Distribution Width 15.4 % (11.8-14.3); White Blood Cell 7.5 10^3/uL (4.4-10.8)
[2021-01-13 07:28] LABS: Potassium 4.1 mmol/L (3.5-5.1)
[2021-01-13 07:39] LABS: BUN/Creatinine Ratio 39.8; Calcium 7.9 mg/dL (8.5-10.1)
[2021-01-13] MEDS: Ensure Enlive Strawberry 8oz Bottle PO SCH ×2 (08:00→17:15)
[2021-01-13 09:00] VITALS: BP 103/55
[2021-01-13] MEDS: SALINE 0.65 % NASAL SPRAY 45ML BOTTLE EACHNOSTRI SCH ×2 (09:23→21:43)
[2021-01-13] MEDS: ZINC SULFATE 220mg CAP or TAB PO SCH (09:23)
[2021-01-13] MEDS: Pro-Stat SF 30ml Vanilla PO SCH (09:24)
[2021-01-13] MEDS: PANTOPRAZOLE 40 MG TAB PO SCH (09:24)
[2021-01-13] MEDS: ASCORBIC ACID 1,000 MG TAB PO SCH (09:24)
[2021-01-13] MEDS: ENOXAPARIN SOD 40 MG/0.4 ML SYRINGE SC SCH (09:25)
[2021-01-13] MEDS: CHOLECALCIFEROL (VITD3) 2,000 UNIT CAP/TAB PO SCH (09:25)
[2021-01-13] MEDS: BUDESONIDE (INHALATION) 180 MCG IH IN SCH ×2 (09:39→21:53)
[2021-01-13] MEDS: ALBUTEROL SULF HFA 90MCG INH 200DOSE IN PRN ×2 (09:39→21:53)
[2021-01-13 12:26] VITALS: BP 100/50
[2021-01-13 17:00] VITALS: BP 115/65
[2021-01-13 22:00] VITALS: BP 105/51
[2021-01-14 05:00] VITALS: BP 125/63
[2021-01-14] MEDS: ALBUTEROL SULF HFA 90MCG INH 200DOSE IN PRN ×2 (06:10→20:53)
[2021-01-14] MEDS: BUDESONIDE (INHALATION) 180 MCG IH IN SCH ×2 (06:10→20:15)
[2021-01-14] MEDS: ZINC SULFATE 220mg CAP or TAB PO SCH (07:31)
[2021-01-14] MEDS: ASCORBIC ACID 1,000 MG TAB PO SCH (07:31)
[2021-01-14] MEDS: PANTOPRAZOLE 40 MG TAB PO SCH (07:31)
[2021-01-14] MEDS: Ensure Enlive Strawberry 8oz Bottle PO SCH ×2 (07:32→18:07)
[2021-01-14] MEDS: CHOLECALCIFEROL (VITD3) 2,000 UNIT CAP/TAB PO SCH (07:32)
[2021-01-14] MEDS: ENOXAPARIN SOD 40 MG/0.4 ML SYRINGE SC SCH (07:32)
[2021-01-14] MEDS: SALINE 0.65 % NASAL SPRAY 45ML BOTTLE EACHNOSTRI SCH (07:32)
[2021-01-14] MEDS: Pro-Stat SF 30ml Vanilla PO SCH (07:32)
[2021-01-14 09:15] VITALS: BP 131/66
[2021-01-14 13:36] VITALS: BP 108/52
[2021-01-14 16:52] VITALS: BP 96/52
[2021-01-14 17:00] VITALS: BP 96/52
== END 2021-01-14 21:20 | DRG 177 ==
LOC: EDBD 15:30 → ER 15:30 → TELE 18:53 → TELE-EAST 20:28
PROVIDERS: ADMIT Family Medicine; ATTEND Internal Medicine
PROC: XW033E5 Introduction of Remdesivir Anti-infective into Peripheral Vein, Percutaneous Approach, New Technology Group 5 (ICD-10-PCS; principal; 2020-12-21)
DX: U07.1 COVID-19 (principal); J12.82 Pneumonia due to coronavirus disease 2019; J96.01 Acute respiratory failure with hypoxia; I21.4 Non-ST elevation (NSTEMI) myocardial infarction; N17.0 Acute kidney failure with tubular necrosis; E43 Unspecified severe protein-calorie malnutrition; N39.0 Urinary tract infection, site not specified; J98.11 Atelectasis; E87.3 Alkalosis; Z68.1 Body mass index [BMI] 19.9 or less, adult; E86.0 Dehydration; R73.9 Hyperglycemia, unspecified; D89.839 Cytokine release syndrome, grade unspecified; F03.90 Unspecified dementia, unspecified severity, without behavioral disturbance, psychotic disturbance, mood disturbance, and anxiety; E78.00 Pure hypercholesterolemia, unspecified; E78.5 Hyperlipidemia, unspecified; I12.9 Hypertensive chronic kidney disease with stage 1 through stage 4 chronic kidney disease, or unspecified chronic kidney disease; N18.9 Chronic kidney disease, unspecified
CPT/HCPCS: 36415; 36600; 71045; 71250; 76775; 80048; 80053; 81001; 82306; 82570; 82728; 82805; 83036; 83605; 83615; 83735; 83880; 84100; 84156; 84300; 84443; 84484; 85025; 85379; 85610; 85730; 86141; 87040; 87081; 87086; 87426; 93005; 93306; 93970; 94640; 96361; 96365; 96366; 96368; 96375; 97110; 97116; 97530; 99291; G0378; J0696; J1100

== ENCOUNTER 2021-10-09 21:08 | Inpatient (IN) | payer MEDICARE, BC ==
[~2021-10-09] VITALS: Ht 157.5 cm; Wt 48.6 kg
[~2021-10-09 21:08] MED LIST: ACET1CAP14 PO; ALPR0.254 PO; AMLO-496 PO; B-COTAB10 OR; BET25T GT; CHOL20007 OR; DIP25C PO; DOCU100T15 PO; FER325T PO; HYDR-4902 PO; MELA3TAB27 PO; PRAV20TA3 PO; SENN-58 PO; SIME1CAP12 PO; ZINC50TA27 PO; ZOLP5TAB5 PO
[2021-10-09 23:23] LABS: Basophils # (auto) 0.1 10 ^3/uL (0-0.2); Basophils % (auto) 0.6 % (0.0-2.0); Eosinophils # (auto) 0.2 10 ^3/uL (0-0.8); Eosinophils % (auto) 1.3 % (0.0-7.0); Hematocrit 34.2 % (41.0-53.0); Lymphocytes # (auto) 0.9 10 ^3/uL (0.4-5.4); Mean Corpuscular Hemoglobin 28.7 pg (28.0-32.0); Mean Corpuscular Hgb Conc. 32.2 g/dL (32.0-36.0); Monocytes # (auto) 0.9 10 ^3/uL (0-1.3); Monocytes % (auto) 7.5 % (0.0-12.0); Neutrophils # (auto) 10.2 10 ^3/uL (1.6-8.6); Neutrophils % (auto) 83.6 % (37.0-80.0); Red Blood Cells 3.85 10^6/uL (4.5-5.90); Red Cell Distribution Width 16.8 % (11.8-14.3); White Blood Cell 12.2 10^3/uL (4.4-10.8)
[2021-10-09 23:41] LABS: Alanine Aminotransferase 24 U/L (16-61); Albumin 2.9 g/dL (3.4-5.0); Anion Gap 8 (5-15); Aspartate Aminotransferase 15 U/L (15-37); BUN/Creatinine Ratio 20.6; Blood Urea Nitrogen 43 mg/dL (7-18); Carbon Dioxide 24 mmol/L (21-32); Chloride 113 mmol/L (98-107); GFR African American 39 mL/min; GFR Non-African American 32 mL/min; Glucose 121 mg/dL (74-106); Potassium 4.4 mmol/L (3.5-5.1); Sodium 145 mmol/L (136-145)
[2021-10-09] MEDS: MORPHINE SULFATE INJ 2 MG/ml SYRG IV ONE ×2 (23:41→23:53)
[2021-10-09 23:43] LABS: Alkaline Phosphatase 53 U/L (45-117); Bilirubin, Total 0.2 mg/dL (0.2-1.0); Total Protein 5.6 g/dL (6.4-8.2)
[2021-10-10] MEDS ORDERED: MORPHINE SULFATE INJ 2 MG/ml SYRG IV PRN ×2
[2021-10-10] MEDS ORDERED: DOCUSATE SOD 100 MG CAP PO PRN
[2021-10-10] MEDS ORDERED: ALBUMIN 25% 100 ML IV ONE
[2021-10-10] MEDS ORDERED: NITROGLYCERIN 0.4 MG SL TAB SL PRN
[2021-10-10] MEDS ORDERED: hydrALAZINE HCL 20 MG/ML VL IV PRN
[2021-10-10] MEDS ORDERED: ACETAMINOPHEN 325 MG TAB PO PRN
[2021-10-10] MEDS ORDERED: HYDROcodone-ACET 5/325MG TAB PO PRN
[2021-10-10] MEDS ORDERED: HYDROmorphone HCL 2 MG/ML VL/or syr IV ONE
[2021-10-10] MEDS ORDERED: cefTRIAXone 1GM/50ML D5W 50 ML IV ONE (01:00)
[2021-10-10 05:00] VITALS: BP 154/73
[2021-10-10] MEDS: SODIUM CHLOR 0.9% PF (SALINE LOCK) 10ML VIAL/SYR IV SCH ×3 (05:03→21:48)
[2021-10-10 06:53] LABS: Basophils # (auto) 0 10 ^3/uL (0-0.2); Basophils % (auto) 0.4 % (0.0-2.0); Eosinophils # (auto) 0 10 ^3/uL (0-0.8); Eosinophils % (auto) 0.2 % (0.0-7.0); Hematocrit 34.2 % (41.0-53.0); Hemoglobin 11.1 g/dL (13.5-17.5); Lymphocytes # (auto) 0.8 10 ^3/uL (0.4-5.4); Lymphocytes % (auto) 6.7 % (10.0-50.0); Mean Corpuscular Hemoglobin 29.2 pg (28.0-32.0); Mean Corpuscular Hgb Conc. 32.6 g/dL (32.0-36.0); Mean Corpuscular Volume 89.6 fL (80.0-100.0); Monocytes # (auto) 1.2 10 ^3/uL (0-1.3); Monocytes % (auto) 9.4 % (0.0-12.0); Neutrophils # (auto) 10.3 10 ^3/uL (1.6-8.6); Neutrophils % (auto) 83.3 % (37.0-80.0); Red Blood Cells 3.82 10^6/uL (4.5-5.90); Red Cell Distribution Width 16.7 % (11.8-14.3); White Blood Cell 12.3 10^3/uL (4.4-10.8)
[2021-10-10 07:08] LABS: Albumin 3.2 g/dL (3.4-5.0); BUN/Creatinine Ratio 21.2; Calcium 8.4 mg/dL (8.5-10.1); Potassium 4.1 mmol/L (3.5-5.1)
[2021-10-10 07:10] LABS: Bilirubin, Total 0.4 mg/dL (0.2-1.0)
[2021-10-10 08:00] VITALS: BP_SYST 128; BP_DIAS 59; BP_DIAS 70
[2021-10-10] MEDS ORDERED: FAMOTIDINE (10MG/ML) 2ML VL IV SCH (10:00)
[2021-10-10] MEDS ORDERED: ZINC SULFATE 220mg CAP or TAB PO SCH (10:00)
[2021-10-10] MEDS ORDERED: ASCORBIC ACID 500 MG TAB PO SCH (10:00)
[2021-10-10] MEDS ORDERED: KETOROLAC TROMETH 30 MG/ML 1ML VIAL IV PRN ×2 (10:15)
[2021-10-10] MEDS: MULTIPLE VITAMIN TAB PO SCH (10:24)
[2021-10-10] MEDS: HEPARIN SODIUM (PORCINE) 5000 UNITS/ML 1ML VIAL SC SCH ×2 (10:25→21:52)
[2021-10-10 12:00] VITALS: BP 131/73
[2021-10-10] MEDS ORDERED: SODIUM CHLORIDE 0.9% 1,000 ML IV SCH (12:15)
[2021-10-10] MEDS ORDERED: TETRACAINE 1% INJ 2 ML VIAL IJ ONE (14:06)
[2021-10-10] MEDS ORDERED: MORPHINE SULF PF 5 MG/10 ML VIAL ONE (14:10)
[2021-10-10] MEDS ORDERED: fentaNYL CITRATE 100 MCG/2 ML VL ONE (14:10)
[2021-10-10] MEDS ORDERED: MIDAZOLAM HCL 2MG/2ML 2ml VIAL (1mg/ml) ONE (14:10)
[2021-10-10] MEDS: LACTATED RINGER'S 1,000 ML IV SCH (15:45)
[2021-10-10] MEDS: FAMOTIDINE (10MG/ML) 2ML VL IV SCH (15:53)
[2021-10-10] MEDS ORDERED: DexAMETHasone SOD PHOS 10MG/1ML VIAL INJ IV PRN (16:15)
[2021-10-10] MEDS ORDERED: diphenhdrAMINE HCL 50 MG/1 ML VL IV PRN (16:15)
[2021-10-10] MEDS ORDERED: NALOXONE HCL 0.4 MG/ML VIAL IV PRN ×2 (16:15)
[2021-10-10] MEDS ORDERED: ONDANSETRON HCL 4 MG/2 ML VIAL IV PRN ×3 (16:15)
[2021-10-10 17:14] VITALS: BP 95/63
[2021-10-10] MEDS: SODIUM CHLORIDE 0.9% 1,000 ML IV SCH (17:39)
[2021-10-10 20:00] VITALS: BP 116/74
[2021-10-10] MEDS ORDERED: cefTRIAXone 1GM/50ML D5W 50 ML IV SCH (21:00)
[2021-10-10] MEDS: ceFAZolin 2 GM in D5W 5% 100 ML IV SCH (21:48)
[2021-10-10 22:00] VITALS: BP 116/74
[2021-10-11] MEDS: LACTATED RINGER'S 1,000 ML IV SCH (01:45)
[2021-10-11] MEDS: SODIUM CHLORIDE 0.9% 1,000 ML IV SCH ×2 (02:05→18:33)
[2021-10-11 05:00] VITALS: BP 114/56
[2021-10-11] MEDS: ceFAZolin 2 GM in D5W 5% 100 ML IV SCH (05:14)
[2021-10-11] MEDS: SODIUM CHLOR 0.9% PF (SALINE LOCK) 10ML VIAL/SYR IV SCH ×3 (05:14→22:27)
[2021-10-11 08:00] VITALS: BP_SYST 100; BP_SYST 81; BP_DIAS 40; BP_DIAS 70
[2021-10-11 11:10] LABS: Basophils # (auto) 0.1 10 ^3/uL (0-0.2); Basophils % (auto) 0.5 % (0.0-2.0); Eosinophils # (auto) 0 10 ^3/uL (0-0.8); Eosinophils % (auto) 0.1 % (0.0-7.0); Hematocrit 31.7 % (41.0-53.0); Lymphocytes # (auto) 0.4 10 ^3/uL (0.4-5.4); Lymphocytes % (auto) 2.7 % (10.0-50.0); Mean Corpuscular Hgb Conc. 31.7 g/dL (32.0-36.0); Mean Corpuscular Volume 91.5 fL (80.0-100.0); Monocytes # (auto) 1.5 10 ^3/uL (0-1.3); Monocytes % (auto) 9.4 % (0.0-12.0); Neutrophils # (auto) 14.4 10 ^3/uL (1.6-8.6); Neutrophils % (auto) 87.3 % (37.0-80.0); Red Blood Cells 3.46 10^6/uL (4.5-5.90); Red Cell Distribution Width 16.9 % (11.8-14.3); White Blood Cell 16.5 10^3/uL (4.4-10.8)
[2021-10-11] MEDS: HYDROcodone-ACET 10/325MG TAB PO PRN ×2 (11:19→19:03)
[2021-10-11] MEDS: MULTIPLE VITAMIN TAB PO SCH (11:19)
[2021-10-11] MEDS: ENOXAPARIN SOD 30 MG/0.3 ML SYRINGE SC SCH (11:20)
[2021-10-11] MEDS: HEPARIN SODIUM (PORCINE) 5000 UNITS/ML 1ML VIAL SC SCH ×2 (11:22→22:32)
[2021-10-11 11:28] LABS: Calcium 8.1 mg/dL (8.5-10.1); Potassium 4.8 mmol/L (3.5-5.1)
[2021-10-11 11:30] LABS: BUN/Creatinine Ratio 20.6
[2021-10-11 12:00] VITALS: BP 102/46
[2021-10-11 16:00] VITALS: BP 97/49
[2021-10-11 22:00] VITALS: BP 110/51
[2021-10-12 05:00] VITALS: BP 126/50
[2021-10-12] MEDS: HYDROcodone-ACET 10/325MG TAB PO PRN ×2 (05:07→06:27)
[2021-10-12] MEDS: SODIUM CHLOR 0.9% PF (SALINE LOCK) 10ML VIAL/SYR IV SCH ×3 (06:26→21:02)
[2021-10-12 07:57] LABS: Eosinophils # (auto) 0 10 ^3/uL (0-0.8); Lymphocytes # (auto) 0.7 10 ^3/uL (0.4-5.4)
[2021-10-12 07:59] LABS: Basophils # (auto) 0 10 ^3/uL (0-0.2); Basophils % (auto) 0.3 % (0.0-2.0); Eosinophils % (auto) 0.4 % (0.0-7.0); Hematocrit 24.4 % (41.0-53.0); Lymphocytes % (auto) 6.3 % (10.0-50.0); Mean Corpuscular Hemoglobin 29.3 pg (28.0-32.0); Mean Corpuscular Hgb Conc. 32.7 g/dL (32.0-36.0); Mean Corpuscular Volume 89.6 fL (80.0-100.0); Monocytes % (auto) 8.9 % (0.0-12.0); Neutrophils # (auto) 9.7 10 ^3/uL (1.6-8.6); Neutrophils % (auto) 84.1 % (37.0-80.0); Red Blood Cells 2.72 10^6/uL (4.5-5.90); Red Cell Distribution Width 16.8 % (11.8-14.3); White Blood Cell 11.5 10^3/uL (4.4-10.8)
[2021-10-12 08:14] LABS: BUN/Creatinine Ratio 24.9; Calcium 7.9 mg/dL (8.5-10.1); Magnesium 2.1 mg/dL (1.6-2.6); Potassium 4.5 mmol/L (3.5-5.1)
[2021-10-12 09:00] VITALS: BP 124/60
[2021-10-12] MEDS: MULTIPLE VITAMIN TAB PO SCH (09:52)
[2021-10-12] MEDS: ENOXAPARIN SOD 30 MG/0.3 ML SYRINGE SC SCH (09:52)
[2021-10-12] MEDS: FAMOTIDINE (10MG/ML) 2ML VL IV SCH (09:52)
[2021-10-12] MEDS: HEPARIN SODIUM (PORCINE) 5000 UNITS/ML 1ML VIAL SC SCH ×2 (09:56→21:06)
[2021-10-12] MEDS: SODIUM CHLORIDE 0.9% 1,000 ML IV SCH (09:56)
[2021-10-12] MEDS ORDERED: POLYETHYLENE GLYCOL 17 GM PWDR PO ONE (10:15)
[2021-10-12 13:00] VITALS: BP 140/74
[2021-10-12 16:59] LABS: Urine Bacteria FEW /hpf (None Seen); Urine Blood Negative /uL (Negative); Urine Mucus FEW (None Seen); Urine Specific Gravity 1.016 (1.001-1.035); Urine WBC 3 /hpf (0 - 3)
[2021-10-12 17:15] LABS: Creatinine, Urine 67 mg/dL (30.0-125.0); Sodium Urine 49 mmol/L (40-220)
[2021-10-12 22:00] VITALS: BP 135/61
[2021-10-13 05:00] VITALS: BP 145/53
[2021-10-13 06:03] LABS: BUN/Creatinine Ratio 27.2; Calcium 8.1 mg/dL (8.5-10.1); Potassium 4.4 mmol/L (3.5-5.1)
[2021-10-13] MEDS: SODIUM CHLOR 0.9% PF (SALINE LOCK) 10ML VIAL/SYR IV SCH ×2 (06:47→15:33)
[2021-10-13 09:00] VITALS: BP 140/51
[2021-10-13] MEDS: HEPARIN SODIUM (PORCINE) 5000 UNITS/ML 1ML VIAL SC SCH (10:00)
[2021-10-13] MEDS: MULTIPLE VITAMIN TAB PO SCH (10:07)
[2021-10-13] MEDS: ENOXAPARIN SOD 30 MG/0.3 ML SYRINGE SC SCH (10:07)
[2021-10-13 13:00] VITALS: BP 112/47
[2021-10-13 13:27] LABS: Basophils # (auto) 0 10 ^3/uL (0-0.2); Basophils % (auto) 0.2 % (0.0-2.0); Eosinophils # (auto) 0 10 ^3/uL (0-0.8); Eosinophils % (auto) 0.1 % (0.0-7.0); Hematocrit 28.3 % (41.0-53.0); Hemoglobin 9.3 g/dL (13.5-17.5); Lymphocytes # (auto) 0.8 10 ^3/uL (0.4-5.4); Lymphocytes % (auto) 6.2 % (10.0-50.0); Mean Corpuscular Hemoglobin 29.5 pg (28.0-32.0); Mean Corpuscular Hgb Conc. 32.7 g/dL (32.0-36.0); Mean Corpuscular Volume 89.9 fL (80.0-100.0); Monocytes % (auto) 7.9 % (0.0-12.0); Neutrophils # (auto) 10.9 10 ^3/uL (1.6-8.6); Neutrophils % (auto) 85.6 % (37.0-80.0); Red Blood Cells 3.14 10^6/uL (4.5-5.90); Red Cell Distribution Width 16.3 % (11.8-14.3); White Blood Cell 12.8 10^3/uL (4.4-10.8)
[2021-10-13 16:09] VITALS: BP 112/47
[2021-10-13 17:00] VITALS: BP 144/61
== END 2021-10-13 19:51 | DRG 481 ==
LOC: ER 21:08 → EDBD 21:08 → OVERFLOW 23:54 → CENTRAL 10-10 02:30 → TELE-CENTR 10-10 08:14
PROVIDERS: ADMIT Nurse Practitioner Family; ATTEND Internal Medicine
PROC: 0QS734Z Reposition Left Upper Femur with Internal Fixation Device, Percutaneous Approach (ICD-10-PCS; principal; 2021-10-10 14:06)
DX: S72.142A Displaced intertrochanteric fracture of left femur, initial encounter for closed fracture (principal); E44.0 Moderate protein-calorie malnutrition; N17.9 Acute kidney failure, unspecified; Z68.1 Body mass index [BMI] 19.9 or less, adult; D64.9 Anemia, unspecified; D72.829 Elevated white blood cell count, unspecified; E88.09 Other disorders of plasma-protein metabolism, not elsewhere classified; F03.90 Unspecified dementia, unspecified severity, without behavioral disturbance, psychotic disturbance, mood disturbance, and anxiety; I73.9 Peripheral vascular disease, unspecified; N18.31 Chronic kidney disease, stage 3a; Z20.822 Contact with and (suspected) exposure to COVID-19; I12.9 Hypertensive chronic kidney disease with stage 1 through stage 4 chronic kidney disease, or unspecified chronic kidney disease; I25.10 Atherosclerotic heart disease of native coronary artery without angina pectoris; W18.39XA Other fall on same level, initial encounter; Y93.89 Activity, other specified; Y92.89 Other specified places as the place of occurrence of the external cause; Y99.8 Other external cause status; Z85.46 Personal history of malignant neoplasm of prostate
CPT/HCPCS: 36415; 71045; 73502; 76000; 80048; 80053; 81001; 82570; 83036; 83735; 83935; 84300; 84443; 85025; 87086; 87088; 87186; 93306; 96365; 96375; 97110; 97116; 97530; G0378; J0690; J0696; J2250; J3490; J7060; P9047